=== PATIENT | female | born 1970 | race Native Hawaiian/Other Pacific Islander ===

== ENCOUNTER 2017-07-04 22:44 | Emergency (ER) | payer SELFPAY ==
[2017-07-04 22:47] VITALS: BP 174/98; PULSE 100; RESP 20; TEMP 98.5; O2SAT 100
[2017-07-04] MEDS ORDERED: AMOX500T PO (23:12)
[2017-07-04] MEDS ORDERED: DICL75TA PO (23:12)
[2017-07-04] MEDS ORDERED: CORTI10A LEFT EAR (23:12)
[2017-07-04] MEDS ORDERED: ACETAMINOPHEN/HYDROcodone 325 MG/5 MG TAB PO ONE (23:15)
[2017-07-04] MEDS ORDERED: AMOXICILLIN (TRIHYDRATE) 500 MG CAP PO ONE (23:15)
--- NOTE | 2017-07-04 23:17 | PD ---
HPI Chief Complaint: ENT Complaint Time Seen by Provider: 22:56 Travel History International Travel<30 days: No Contact w/Intl Traveler<30days: No Traveled to known affect area: No History of Present Illness HPI 46-year-old female presents to emergency Department with complaints of left ear pain. She states that she had just gotten over a cold this past week or 2. She has had runny nose, cough, congestion and general malaise. She states that this has improved but now over last several days she' s developed left ear pain. Those are moderate. No exacerbating activity. There is some improvement with pressing on the left side of her neck. PFSH Past Medical History Narrative Medical Uterine carcinoma, left TM perforation, asthma Asthma: Yes Diminished Hearing: No Hypertension: Yes Tetanus Vaccination: < 5 Years ?: Unknown Past Surgical History Gynecologic Surgery: Yes (complete hysterectomy) Hysterectomy: Yes (2013) Social History Alcohol Use: No Tobacco Use: Yes Substance Use: No Allergies-Medications (Allergen,Severity, Reaction): Coded Allergies: No Known Allergies (Unverified , 07/04/17) Reported Meds & Prescriptions Reported Meds & Active Scripts Active Diclofenac Sodium DR (Diclofenac Sodium) 75 Mg Tabdr 75 Mg PO BID Xylktgyy-Kzekbigzp-IY Otic Drops (Neomycin/Polymyxin/Hydrocortisone) 1 % Soln 4 Drop LEFT EAR QID Amoxicillin 500 Mg Tab 500 Mg PO TID Review of Systems Except as stated in HPI: all other systems reviewed are Neg Physical Exam Narrative GENERAL: Well-developed, well-nourished in no acute distress. Nontoxic appearing. HEAD: Normocephalic, atraumatic. EYES: Pupils equal round and reactive. Extraocular motions intact. No scleral icterus. No injection or drainage. ENT: TMs clear without erythema. Intact Valsalva The external auditory canals clear. Patient complains of pain in the left external auditory canals. No exudate. No erythema. Nose: clear . Posterior pharynx is pink and moist. No tonsillar edema or exudate. Uvula midline. Airway patent. No dental caries. NECK: Trachea midline.Supple, nontender, moves head freely. No central bony tenderness or spasm. CARDIOVASCULAR: Regular rate and rhythm without murmurs, gallops, or rubs. RESPIRATORY: Clear to auscultation. Breath sounds equal bilaterally. No wheezes , rales, or rhonchi. GASTROINTESTINAL: Abdomen soft, non-tender, nondistended. No hepato-splenomegaly , or palpable masses. No guarding. EXTREMITIES: No clubbing, cyanosis, or edema. No joint tenderness, effusion, or edema noted. BACK: Nontender without deformity or crepitance. No flank tenderness. Data Data Last Documented VS Vital Signs Date Time Temp Pulse Resp B/P (MAP) Pulse Ox O2 Delivery O2 Flow Rate FiO2 07/04/17 22:47 98.5 100 20 174/98 (123) 100 Room Air Orders Orders Amoxicillin (Trimox) (07/04/17 23:15) Acetamin-Hydrocod 325-5 Mg ([place] 5-325 (07/04/17 23:15) Ed Discharge Order (07/04/17 23:13) [facility] Medical Decision Making Medical Screen Exam Complete: Yes Emergency Medical Condition: Yes Medical Record Reviewed: Yes Differential Diagnosis Differential diagnoses: Otitis media, otitis externa, mastoiditis Narrative Course Patient's given Lortab 5 a grams by mouth and amoxicillin 500 mg by mouth. This is left ear pain Diagnosis Primary Impression: Left ear pain Patient Instructions: General Instructions, Narcotic given in the ED Additional Instructions: Rest. Nasonex [id number]. Meds as directed. Follow-up with a primary care doctor in the next week. Follow-up with ENT in 1 week. Med/Other Pt SpecificInfo: Prescription(s) given Scripts Diclofenac Sodium DR (Diclofenac Sodium DR) 75 Mg Tabdr 75 MG PO BID, #14 TAB 0 Refills Prov: Ajay Joaquin MD 07/04/17 Aaganwbm-Jevnkwmbc-XQ Otic Drops (Uidpqkgd-Byfpphbmp-MS Otic Drops) 1 % Soln 4 DROP LEFT EAR QID for Infection, #1 BOTTLE 0 Refills Prov: Ajay Joaquin MD 07/04/17 Amoxicillin (Amoxicillin) 500 Mg Tab 500 MG PO TID for Infection, #30 TAB 0 Refills Prov: Ajay Joaquin MD 07/04/17 Disposition: 01 DISCHARGE HOME Condition: Stable Peter Carballo Jul 04, 2017 23:17
== END 2017-07-04 23:42 | disposition home or self-care (01) ==
LOC: NEPD 22:44
DX: H92.02 Otalgia, left ear (principal); Z72.0 Tobacco use
CPT/HCPCS: 99284